=== PATIENT | female | born 1945 | race African-American/Black ===

== ENCOUNTER 2018-06-08 07:39 | Day surgery (SDC) | payer MEDICARE, MEDICAID ==
[~2018-06-08 07:39] MED LIST: KETOROLAC TROMETHAMINE 0.45% 4 DROP/0.4 ML DROPERETTE OS PRN
[2018-06-08] MEDS ORDERED: EPINEPHRINE INJ/PF 1 MG/1 ML AMPULE ONE (08:07)
[2018-06-08] MEDS ORDERED: LIDOCAINE 1% INJ-PF (10 MG/ML) 30 ML SDV ONE (08:08)
[2018-06-08] MEDS ORDERED: CHONDR SU A NA/HYALUR INTRAOC KIT (SURGICARE) ONE (08:08)
[2018-06-08] MEDS: TROPICAMIDE 1% OPH SOLN 3 ML OS PRN ×3 (08:30→08:53)
[2018-06-08] MEDS: CYCLOPENTOLATE 0.2%/PHENYLEPHRINE 1% OPH SOLN 2 ML OS PRN ×3 (08:30→08:53)
[2018-06-08] MEDS: TETRACAINE HCL 0.5% OPH SOLN 4 ML OS PRN ×3 (08:30→08:58)
[2018-06-08] MEDS: BESIFLOXACIN HCL 0.6% OPH SUSP 5 ML BOTTLE OS PRN ×4 (08:30→09:20)
[2018-06-08] MEDS ORDERED: MIDAZOLAM 2 MG/2 ML INJ ONE (08:48)
--- NOTE | 2018-06-09 09:22 | [facility] OPERATIVE REPORT E ---
[facility] Operative Report NAME: LAMAR YOUNGBLOOD AGE: 73Y DATE OF SURGERY: 06/08/2018 ROOM: PREOPERATIVE DIAGNOSIS: CATARACT, LEFT EYE. POSTOPERATIVE DIAGNOSIS: CATARACT, LEFT EYE. OPERATION: Cataract extraction with insertion of an IOL of the left eye. SURGEON: BRYAN CARRILLO M.D. ANESTHESIA: Topical. PROCEDURE: After obtaining appropriate consent, the patient's left eye was prepped and draped in sterile fashion as well as the surgeon in a sterile manner and cataract surgery was started. First a paracentesis blade was used to make a side-port incision. Viscoelastic was used to inflate the anterior chamber. Next a 2.4 mm incision was made with a 2.4 mm blade, clear corneal temporally. A continuous capsulorrhexis was made using a cystotome and Utrata forceps. Following this hydrodissection was carried out to make the lens fully loose and mobile and it was rotated 90 degrees. Following this, a fwdgvo-pua-obyhxht technique was used to phacoemulsify the lens with a CDE of 8.70. The remaining cortex was removed with irrigation/aspiration. Provisc was instilled into the capsular bag to inflate the bag. A SN60WF, 24.5 diopter lens was placed. The remaining viscoelastic material was removed with irrigation/aspiration. Following this, the incision was found to be watertight. Besivance was instilled into the eye and a protective shield was placed over the eye. The patient returned to the postoperative recovery in stable condition. DICTATING PHYSICIAN: BRYAN CARRILLO M.D. [id number] PHY#: [id number] ID: [id number] JOB#: [id number] ACCT: [id number] cc:BRYAN CARRILLO M.D. >
--- NOTE | 2018-06-09 09:22 | [facility] DISCHARGE SUMMARY E ---
[facility] Discharge Summary NAME: LAMAR YOUNGBLOOD AGE: 73Y ADMITTED: 06/08/2018 DISCHARGED: 06/08/2018 DIAGNOSIS: CATARACT, LEFT EYE. SUMMARY: This is a 73-year-old patient who underwent cataract extraction, left eye. She underwent surgery because she was having trouble reading road signs and small print. DISCHARGE INSTRUCTIONS: She should be on a regular diet, no bending at the waist, and no heavy lifting. She should use her Besivance, Ilevro, and Durezol at 3 p.m. and 8 p.m. and sleep with a rigid shield. I will see her for her 1-day postoperative tomorrow. DICTATING PHYSICIAN: BRYAN CARRILLO M.D. [id number] PHY#: [id number] ID: [id number] JOB#: [id number] ACCT: [id number] cc:BRYAN CARRILLO M.D. >
== END 2018-06-08 10:02 | disposition home or self-care (01) ==
LOC: SC 07:39
PROVIDERS: ATTEND Internal Medicine
DX: H25.13 Age-related nuclear cataract, bilateral (principal); E03.9 Hypothyroidism, unspecified; M06.9 Rheumatoid arthritis, unspecified; I10 Essential (primary) hypertension; J44.9 Chronic obstructive pulmonary disease, unspecified; Z88.0 Allergy status to penicillin; Z79.51 Long term (current) use of inhaled steroids; Z79.899 Other long term (current) drug therapy; Z87.891 Personal history of nicotine dependence
CPT/HCPCS: 66984; V2632; J2250; J3490 ×3; A9270; J0171; 142

== ENCOUNTER 2018-08-20 10:24 | Day surgery (SDC) | payer MEDICARE, MEDICAID ==
[~2018-08-20 10:24] MED LIST changes: +KETOROLAC TROMETHAMINE 0.45% 4 DROP/0.4 ML DROPERETTE OD PRN; -KETOROLAC TROMETHAMINE 0.45% 4 DROP/0.4 ML DROPERETTE OS PRN; +MIDAZOLAM 2 MG/2 ML INJ ONE
[2018-08-20] MEDS: TROPICAMIDE 1% OPH SOLN 3 ML OD PRN ×3 (11:18→11:39)
[2018-08-20] MEDS: CYCLOPENTOLATE 0.2%/PHENYLEPHRINE 1% OPH SOLN 2 ML OD PRN ×3 (11:18→11:39)
[2018-08-20] MEDS: TETRACAINE HCL 0.5% OPH SOLN 4 ML OD PRN ×3 (11:18→11:58)
[2018-08-20] MEDS: BESIFLOXACIN HCL 0.6% OPH SUSP 5 ML BOTTLE OD PRN ×4 (11:19→12:19)
[2018-08-20] MEDS: EPINEPHRINE INJ/PF 1 MG/1 ML AMPULE ONE ×2 (12:07→12:16)
[2018-08-20] MEDS: CHONDR SU A NA/HYALUR INTRAOC KIT (SURGICARE) ONE ×2 (12:07→12:18)
[2018-08-20] MEDS: LIDOCAINE 1% INJ-PF (10 MG/ML) 30 ML SDV ONE ×2 (12:07→12:11)
--- NOTE | 2018-08-20 17:47 | [facility] OPERATIVE REPORT E ---
[facility] Operative Report NAME: LAMAR YOUNGBLOOD AGE: 73Y DATE OF SURGERY: 08/20/2018 ROOM: PREOPERATIVE DIAGNOSIS: CATARACT, RIGHT EYE. POSTOPERATIVE DIAGNOSIS: CATARACT, RIGHT EYE. OPERATION: Cataract extraction with insertion of an IOL of the right eye. SURGEON: BRYAN CARRILLO M.D. ANESTHESIA: Topical. PROCEDURE: After obtaining appropriate consent, the patient's right eye was prepped and draped in sterile fashion as well as the surgeon in a sterile manner and cataract surgery was started. First a paracentesis blade was used to make a side-port incision. Viscoelastic was used to inflate the anterior chamber. Next a 2.4 mm incision was made with a 2.4 mm blade, clear corneal temporally. A continuous capsulorrhexis was made using a cystotome and Utrata forceps. Following this hydrodissection was carried out to make the lens fully loose and mobile and it was rotated 90 degrees. Following this, a wrkqsy-ecl-uvojvcr technique was used to phacoemulsify the lens with a CDE of 12.09. The remaining cortex was removed with irrigation/aspiration. Provisc was instilled into the capsular bag to inflate the bag. A SN60WF, 23.5 diopter lens was placed. The remaining viscoelastic material was removed with irrigation/aspiration. Following this, the incision was found to be watertight. Besivance was instilled into the eye and a protective shield was placed over the eye. The patient returned to the postoperative recovery in stable condition. DICTATING PHYSICIAN: BRYAN CARRILLO M.D. [id number] PHY#: [id number] ID: [id number] JOB#: [id number] ACCT: [id number] cc:BRYAN CARRILLO M.D. >
--- NOTE | 2018-08-20 17:47 | [facility] DISCHARGE SUMMARY E ---
[facility] Discharge Summary NAME: LAMAR YOUNGBLOOD AGE: 73Y ADMITTED: 08/20/2018 DISCHARGED: 08/20/2018 HOSPITAL COURSE: This is a 73-year-old female who underwent cataract extraction of the right eye. DIAGNOSIS: CATARACT, RIGHT EYE. She underwent surgery because she was having difficulty feeling unbalance since having her first eye done and having difficulty with glare from headlights. DISCHARGE INSTRUCTIONS: She should be on a regular diet. No bending at her waist, no heavy lifting. She should use her Vigamox, Ketorolac, and Predforte at 3 p.m. and 8 p.m. and sleep with a rigid shield. I will see her for her 1 day postoperative tomorrow. DICTATING PHYSICIAN: BRYAN CARRILLO M.D. [id number] PHY#: [id number] ID: [id number] JOB#: [id number] ACCT: [id number] cc:BRYAN CARRILLO M.D. >
== END 2018-08-20 13:02 | disposition home or self-care (01) ==
LOC: SC 10:24
PROVIDERS: ATTEND Internal Medicine
DX: H25.13 Age-related nuclear cataract, bilateral (principal); H40.1132 Primary open-angle glaucoma, bilateral, moderate stage; E03.9 Hypothyroidism, unspecified; M06.9 Rheumatoid arthritis, unspecified; I10 Essential (primary) hypertension; D69.6 Thrombocytopenia, unspecified; R94.5 Abnormal results of liver function studies; Z87.891 Personal history of nicotine dependence; Z88.0 Allergy status to penicillin; Z79.899 Other long term (current) drug therapy; Z79.51 Long term (current) use of inhaled steroids
CPT/HCPCS: 66984; V2632; J2250; J3490 ×3; A9270; J0171; 142